=== PATIENT | male | born 1945 | race Caucasian/White ===

== ENCOUNTER 2022-03-23 10:45 | Inpatient (IN) ==
[2022-03-23] MEDS: QUEtiapine Fumarate 25 MG TABLET PO SCH (20:38)
[2022-03-23] MEDS ORDERED: Lactulose Oral Soln 20 GM/30 ML UDC PO SCH (21:00)
[2022-03-24 08:14] LABS: Basophils % 0.5 %; Eosinophils # 0.2 K/mcL (0.0-0.6); Eosinophils % 3.5 %; Hematocrit 32.8 % (37.5-50.1); Immature Granulocytes % 0.2 % (0-4); Lymphocytes # 0.9 K/mcL (0.6-4.6); Lymphocytes % 21.2 %; Mean Corpuscular HGB Conc 33.5 g/dL (31.6-35.5); Mean Corpuscular Hemoglobin 30.3 pg (28.0-33.3); Mean Corpuscular Volume 90.4 fL (83.0-100.0); Mean Platelet Volume 11.4 fL (9.4-12.4); Monocytes # 0.5 K/mcL (0.0-1.3); Monocytes % 12.5 %; Neutrophils # 2.7 K/mcL (1.6-8.9); Platelet Count 134 K/mcL (140-400); Red Blood Count 3.63 M/mcL (4.19-5.50); Red Cell Distribution Width 16.1 % (11.5-14.5); Segmented Neutrophils % 62.1 %; White Blood Count 4.3 K/mcL (4.3-11.1)
[2022-03-24 08:30] LABS: BUN/Creatinine Ratio 22 (6-26); Blood Urea Nitrogen 30 mg/dL (8-23); Calcium 8.6 mg/dL (8.6-10.3); Carbon Dioxide 26 mEq/L (23-29); Chloride 107 mEq/L (98-107); Glucose 84 mg/dL (70-105); Osmolality,Calculated 295 (280-300); Potassium 3.5 mEq/L (3.5-5.1); Sodium 140 mEq/L (136-145); eGFR For African Americans > 60 (> 60); eGFR For Non-African Americans 50 (> 60)
[2022-03-24 08:32] LABS: Alanine Aminotransferase 68 Units/L (7-52); Albumin 2.8 g/dL (3.5-5.7); Alkaline Phosphatase 135 Units/L (34-104); Aspartate Amino Transferase 147 Units/L (13-39); BUN/Creatinine Ratio 21 (6-26); Bilirubin,Total 0.7 mg/dL (0.3-1.0); Blood Urea Nitrogen 29 mg/dL (8-23); Calcium 8.6 mg/dL (8.6-10.3); Carbon Dioxide 26 mEq/L (23-29); Chloride 107 mEq/L (98-107); Globulin 2.8 g/dL (2.4-3.5); Glucose 84 mg/dL (70-105); Osmolality,Calculated 295 (280-300); Potassium 3.5 mEq/L (3.5-5.1); Sodium 140 mEq/L (136-145); Total Protein 5.6 g/dL (6.4-8.9); eGFR For African Americans > 60 (> 60); eGFR For Non-African Americans 51 (> 60)
[2022-03-24] MEDS ORDERED: Aspirin Enteric Coated 81 MG Tablet PO SCH (09:00)
[2022-03-24] MEDS: Aspirin Enteric Coated 81 MG Tablet PO SCH (09:14)
[2022-03-24] MEDS: Lactulose Oral Soln 20 GM/30 ML UDC PO SCH ×3 (09:15→21:25)
[2022-03-24] MEDS: Finasteride 5 MG TABLET PO SCH (09:15)
[2022-03-24] MEDS: Cholecalciferol (D-3) 1,000 UNIT (25MCG) TABLET PO SCH (09:16)
[2022-03-24] MEDS: amLODIPine 5 MG TABLET PO SCH (09:16)
[2022-03-24] MEDS: QUEtiapine Fumarate 25 MG TABLET PO SCH (21:25)
[2022-03-25 07:37] LABS: Basophils % 0.5 %; Eosinophils # 0.2 K/mcL (0.0-0.6); Eosinophils % 3.9 %; Hematocrit 34.8 % (37.5-50.1); Hemoglobin 11.7 g/dL (12.9-16.9); Immature Granulocytes % 0.3 % (0-4); Lymphocytes % 26.3 %; Mean Corpuscular HGB Conc 33.6 g/dL (31.6-35.5); Mean Corpuscular Hemoglobin 30.4 pg (28.0-33.3); Mean Corpuscular Volume 90.4 fL (83.0-100.0); Mean Platelet Volume 11.2 fL (9.4-12.4); Monocytes % 11.7 %; Neutrophils # 2.2 K/mcL (1.6-8.9); Platelet Count 130 K/mcL (140-400); Red Blood Count 3.85 M/mcL (4.19-5.50); Red Cell Distribution Width 16.3 % (11.5-14.5); Segmented Neutrophils % 57.3 %; White Blood Count 3.8 K/mcL (4.3-11.1)
[2022-03-25 07:50] LABS: INR 1.6; Prothrombin Time 17.9 Seconds (9.4-12.1)
[2022-03-25 07:51] LABS: Monocytes # 0.4 K/mcL (0.0-1.3)
[2022-03-25 08:02] LABS: Alanine Aminotransferase 75 Units/L (7-52); Albumin 2.8 g/dL (3.5-5.7); Alkaline Phosphatase 136 Units/L (34-104); Aspartate Amino Transferase 155 Units/L (13-39); BUN/Creatinine Ratio 21 (6-26); Bilirubin,Total 0.8 mg/dL (0.3-1.0); Blood Urea Nitrogen 26 mg/dL (8-23); Calcium 8.3 mg/dL (8.6-10.3); Carbon Dioxide 27 mEq/L (23-29); Chloride 107 mEq/L (98-107); Globulin 2.9 g/dL (2.4-3.5); Glucose 77 mg/dL (70-105); Osmolality,Calculated 294 (280-300); Potassium 3.6 mEq/L (3.5-5.1); Sodium 140 mEq/L (136-145); Total Protein 5.7 g/dL (6.4-8.9); eGFR For African Americans > 60 (> 60); eGFR For Non-African Americans 58 (> 60)
[2022-03-25 08:03] LABS: BUN/Creatinine Ratio 21 (6-26); Blood Urea Nitrogen 26 mg/dL (8-23); Calcium 8.4 mg/dL (8.6-10.3); Carbon Dioxide 27 mEq/L (23-29); Chloride 107 mEq/L (98-107); Glucose 77 mg/dL (70-105); Osmolality,Calculated 294 (280-300); Potassium 3.7 mEq/L (3.5-5.1); Sodium 140 mEq/L (136-145); eGFR For African Americans > 60 (> 60); eGFR For Non-African Americans 57 (> 60)
[2022-03-25] MEDS: Lactulose Oral Soln 20 GM/30 ML UDC PO SCH ×3 (08:40→20:50)
[2022-03-25] MEDS: Cholecalciferol (D-3) 1,000 UNIT (25MCG) TABLET PO SCH (08:41)
[2022-03-25] MEDS: Aspirin Enteric Coated 81 MG Tablet PO SCH (08:41)
[2022-03-25] MEDS: Finasteride 5 MG TABLET PO SCH (08:41)
[2022-03-25] MEDS: amLODIPine 5 MG TABLET PO SCH (08:41)
[2022-03-25] MEDS: QUEtiapine Fumarate 25 MG TABLET PO SCH (20:50)
[2022-03-26 08:08] LABS: Basophils % 0.5 %; Eosinophils # 0.1 K/mcL (0.0-0.6); Eosinophils % 3.4 %; Hematocrit 36.1 % (37.5-50.1); Hemoglobin 12.2 g/dL (12.9-16.9); Immature Granulocytes % 0.3 % (0-4); Lymphocytes # 0.9 K/mcL (0.6-4.6); Lymphocytes % 22.4 %; Mean Corpuscular HGB Conc 33.8 g/dL (31.6-35.5); Mean Corpuscular Hemoglobin 30.2 pg (28.0-33.3); Mean Corpuscular Volume 89.4 fL (83.0-100.0); Mean Platelet Volume 11.2 fL (9.4-12.4); Monocytes # 0.4 K/mcL (0.0-1.3); Monocytes % 10.7 %; Neutrophils # 2.4 K/mcL (1.6-8.9); Platelet Count 135 K/mcL (140-400); Red Blood Count 4.04 M/mcL (4.19-5.50); Red Cell Distribution Width 15.9 % (11.5-14.5); Segmented Neutrophils % 62.7 %; White Blood Count 3.8 K/mcL (4.3-11.1)
[2022-03-26 08:36] LABS: Alanine Aminotransferase 81 Units/L (7-52); Albumin 2.9 g/dL (3.5-5.7); Alkaline Phosphatase 144 Units/L (34-104); Aspartate Amino Transferase 163 Units/L (13-39); BUN/Creatinine Ratio 22 (6-26); Blood Urea Nitrogen 25 mg/dL (8-23); Calcium 8.3 mg/dL (8.6-10.3); Carbon Dioxide 27 mEq/L (23-29); Chloride 105 mEq/L (98-107); Glucose 81 mg/dL (70-105); Osmolality,Calculated 289 (280-300); Potassium 3.5 mEq/L (3.5-5.1); Sodium 138 mEq/L (136-145); Total Protein 5.9 g/dL (6.4-8.9); eGFR For African Americans > 60 (> 60); eGFR For Non-African Americans > 60 (> 60)
[2022-03-26] MEDS: amLODIPine 5 MG TABLET PO SCH (10:04)
[2022-03-26] MEDS: Lactulose Oral Soln 20 GM/30 ML UDC PO SCH ×3 (10:04→23:59)
[2022-03-26] MEDS: Aspirin Enteric Coated 81 MG Tablet PO SCH (10:05)
[2022-03-26] MEDS: Finasteride 5 MG TABLET PO SCH (10:06)
[2022-03-26] MEDS: Cholecalciferol (D-3) 1,000 UNIT (25MCG) TABLET PO SCH (10:06)
[2022-03-26] MEDS: Furosemide 20 MG TABLET PO SCH (10:19)
[2022-03-26] MEDS: QUEtiapine Fumarate 25 MG TABLET PO SCH (23:59)
[2022-03-27] MEDS: Lactulose Oral Soln 20 GM/30 ML UDC PO SCH ×3 (09:11→22:29)
[2022-03-27] MEDS: Cholecalciferol (D-3) 1,000 UNIT (25MCG) TABLET PO SCH (09:12)
[2022-03-27] MEDS: amLODIPine 5 MG TABLET PO SCH (09:12)
[2022-03-27] MEDS: Finasteride 5 MG TABLET PO SCH (09:12)
[2022-03-27] MEDS: Furosemide 20 MG TABLET PO SCH (09:14)
[2022-03-27] MEDS: Aspirin Enteric Coated 81 MG Tablet PO SCH (09:17)
[2022-03-27] MEDS: QUEtiapine Fumarate 25 MG TABLET PO SCH (22:29)
[2022-03-28] MEDS: amLODIPine 5 MG TABLET PO SCH (09:26)
[2022-03-28] MEDS: Lactulose Oral Soln 20 GM/30 ML UDC PO SCH ×3 (09:26→21:59)
[2022-03-28] MEDS: Aspirin Enteric Coated 81 MG Tablet PO SCH (09:26)
[2022-03-28] MEDS: Finasteride 5 MG TABLET PO SCH (09:27)
[2022-03-28] MEDS: Furosemide 20 MG TABLET PO SCH (09:27)
[2022-03-28] MEDS: Cholecalciferol (D-3) 1,000 UNIT (25MCG) TABLET PO SCH (09:28)
[2022-03-28] MEDS: QUEtiapine Fumarate 25 MG TABLET PO SCH (21:59)
[2022-03-29] MEDS: Cholecalciferol (D-3) 1,000 UNIT (25MCG) TABLET PO SCH (08:41)
[2022-03-29] MEDS: amLODIPine 5 MG TABLET PO SCH (08:41)
[2022-03-29] MEDS: Finasteride 5 MG TABLET PO SCH (08:41)
[2022-03-29] MEDS: Furosemide 20 MG TABLET PO SCH (08:41)
[2022-03-29] MEDS: Lactulose Oral Soln 20 GM/30 ML UDC PO SCH ×3 (08:42→20:39)
[2022-03-29] MEDS: Aspirin Enteric Coated 81 MG Tablet PO SCH (08:42)
[2022-03-29] MEDS: QUEtiapine Fumarate 25 MG TABLET PO SCH (20:40)
[2022-03-30] MEDS: Lactulose Oral Soln 20 GM/30 ML UDC PO SCH ×3 (09:55→21:42)
[2022-03-30] MEDS: amLODIPine 5 MG TABLET PO SCH (09:56)
[2022-03-30] MEDS: Cholecalciferol (D-3) 1,000 UNIT (25MCG) TABLET PO SCH (09:56)
[2022-03-30] MEDS: Finasteride 5 MG TABLET PO SCH (09:56)
[2022-03-30] MEDS: Aspirin Enteric Coated 81 MG Tablet PO SCH (09:56)
[2022-03-30] MEDS: Furosemide 20 MG TABLET PO SCH (09:56)
[2022-03-30 10:06] LABS: Hematocrit 36.8 % (37.5-50.1); Hemoglobin 12.5 g/dL (12.9-16.9); Mean Corpuscular Hemoglobin 30.3 pg (28.0-33.3); Mean Corpuscular Volume 89.1 fL (83.0-100.0); Mean Platelet Volume 10.6 fL (9.4-12.4); Platelet Count 126 K/mcL (140-400); Red Blood Count 4.13 M/mcL (4.19-5.50); Red Cell Distribution Width 15.7 % (11.5-14.5); White Blood Count 5.7 K/mcL (4.3-11.1)
[2022-03-30 10:26] LABS: Albumin/Globulin Ratio 0.9 (1.1-2.2); Bilirubin,Total 1.3 mg/dL (0.3-1.0); Calcium 8.6 mg/dL (8.6-10.3); Globulin 3.2 g/dL (2.4-3.5); Potassium 3.4 mEq/L (3.5-5.1); Total Protein 6.2 g/dL (6.4-8.9)
[2022-03-30] MEDS: QUEtiapine Fumarate 25 MG TABLET PO SCH (21:42)
[2022-03-31] MEDS: amLODIPine 5 MG TABLET PO SCH (09:29)
[2022-03-31] MEDS: Furosemide 20 MG TABLET PO SCH (09:29)
[2022-03-31] MEDS: Aspirin Enteric Coated 81 MG Tablet PO SCH (09:29)
[2022-03-31] MEDS: Finasteride 5 MG TABLET PO SCH (09:29)
[2022-03-31] MEDS: Lactulose Oral Soln 20 GM/30 ML UDC PO SCH ×3 (09:30→21:16)
[2022-03-31] MEDS: Cholecalciferol (D-3) 1,000 UNIT (25MCG) TABLET PO SCH (09:31)
[2022-03-31] MEDS: QUEtiapine Fumarate 25 MG TABLET PO SCH (21:16)
[2022-04-01] MEDS: Aspirin Enteric Coated 81 MG Tablet PO SCH (09:32)
[2022-04-01] MEDS: amLODIPine 5 MG TABLET PO SCH (09:32)
[2022-04-01] MEDS: Finasteride 5 MG TABLET PO SCH (09:32)
[2022-04-01] MEDS: Furosemide 20 MG TABLET PO SCH (09:32)
[2022-04-01] MEDS: Cholecalciferol (D-3) 1,000 UNIT (25MCG) TABLET PO SCH (09:33)
[2022-04-01] MEDS: Lactulose Oral Soln 20 GM/30 ML UDC PO SCH ×3 (09:33→20:25)
[2022-04-01] MEDS: QUEtiapine Fumarate 25 MG TABLET PO SCH (20:25)
[2022-04-01] MEDS: Nystatin POWDER 30 GM BOTTLE TP SCH (20:29)
[2022-04-02] MEDS: Lactulose Oral Soln 20 GM/30 ML UDC PO SCH ×3 (09:48→19:47)
[2022-04-02] MEDS: amLODIPine 5 MG TABLET PO SCH (09:49)
[2022-04-02] MEDS: Finasteride 5 MG TABLET PO SCH (09:49)
[2022-04-02] MEDS: Aspirin Enteric Coated 81 MG Tablet PO SCH (09:49)
[2022-04-02] MEDS: Furosemide 20 MG TABLET PO SCH (09:49)
[2022-04-02] MEDS: Cholecalciferol (D-3) 1,000 UNIT (25MCG) TABLET PO SCH (09:50)
[2022-04-02] MEDS: Nystatin POWDER 30 GM BOTTLE TP SCH ×2 (09:50→19:47)
[2022-04-02] MEDS: QUEtiapine Fumarate 25 MG TABLET PO SCH (19:47)
[2022-04-03 06:11] LABS: Basophils % 0.6 %; Eosinophils # 0.2 K/mcL (0.0-0.6); Eosinophils % 3.7 %; Hemoglobin 11.8 g/dL (12.9-16.9); Immature Granulocytes % 0.2 % (0-4); Lymphocytes % 20.2 %; Mean Corpuscular HGB Conc 33.7 g/dL (31.6-35.5); Mean Corpuscular Hemoglobin 30.2 pg (28.0-33.3); Mean Corpuscular Volume 89.5 fL (83.0-100.0); Mean Platelet Volume 11.3 fL (9.4-12.4); Monocytes # 0.5 K/mcL (0.0-1.3); Monocytes % 10.2 %; Neutrophils # 3.2 K/mcL (1.6-8.9); Platelet Count 142 K/mcL (140-400); Red Blood Count 3.91 M/mcL (4.19-5.50); Red Cell Distribution Width 15.9 % (11.5-14.5); Segmented Neutrophils % 65.1 %; White Blood Count 4.9 K/mcL (4.3-11.1)
[2022-04-03 06:33] LABS: Albumin 2.9 g/dL (3.5-5.7); Albumin/Globulin Ratio 0.8 (1.1-2.2); Bilirubin,Total 1.2 mg/dL (0.3-1.0); Calcium 8.7 mg/dL (8.6-10.3); Globulin 3.5 g/dL (2.4-3.5); Potassium 3.9 mEq/L (3.5-5.1); Total Protein 6.4 g/dL (6.4-8.9)
[2022-04-03] MEDS: Lactulose Oral Soln 20 GM/30 ML UDC PO SCH ×3 (09:57→20:16)
[2022-04-03] MEDS: amLODIPine 5 MG TABLET PO SCH (09:57)
[2022-04-03] MEDS: Aspirin Enteric Coated 81 MG Tablet PO SCH (09:58)
[2022-04-03] MEDS: Cholecalciferol (D-3) 1,000 UNIT (25MCG) TABLET PO SCH (09:58)
[2022-04-03] MEDS: Finasteride 5 MG TABLET PO SCH (09:58)
[2022-04-03] MEDS: Furosemide 20 MG TABLET PO SCH (09:58)
[2022-04-03] MEDS: Nystatin POWDER 30 GM BOTTLE TP SCH ×2 (09:59→20:16)
[2022-04-03] MEDS: QUEtiapine Fumarate 25 MG TABLET PO SCH (20:16)
[2022-04-04 07:35] LABS: Basophils % 0.4 %; Eosinophils # 0.2 K/mcL (0.0-0.6); Eosinophils % 3.7 %; Hematocrit 34.8 % (37.5-50.1); Hemoglobin 11.7 g/dL (12.9-16.9); Immature Granulocytes % 0.2 % (0-4); Lymphocytes # 1.1 K/mcL (0.6-4.6); Lymphocytes % 21.3 %; Mean Corpuscular HGB Conc 33.6 g/dL (31.6-35.5); Mean Corpuscular Volume 89.2 fL (83.0-100.0); Mean Platelet Volume 11.1 fL (9.4-12.4); Monocytes # 0.5 K/mcL (0.0-1.3); Monocytes % 9.7 %; Neutrophils # 3.2 K/mcL (1.6-8.9); Platelet Count 136 K/mcL (140-400); Red Cell Distribution Width 15.6 % (11.5-14.5); Segmented Neutrophils % 64.7 %; White Blood Count 4.9 K/mcL (4.3-11.1)
[2022-04-04] MEDS: amLODIPine 5 MG TABLET PO SCH (07:42)
[2022-04-04] MEDS: Aspirin Enteric Coated 81 MG Tablet PO SCH (07:42)
[2022-04-04] MEDS: Finasteride 5 MG TABLET PO SCH (07:43)
[2022-04-04] MEDS: Nystatin POWDER 30 GM BOTTLE TP SCH ×2 (07:43→21:18)
[2022-04-04] MEDS: Cholecalciferol (D-3) 1,000 UNIT (25MCG) TABLET PO SCH (07:43)
[2022-04-04] MEDS: Lactulose Oral Soln 20 GM/30 ML UDC PO SCH ×2 (07:43→21:17)
[2022-04-04] MEDS: Furosemide 20 MG TABLET PO SCH (08:03)
[2022-04-04 08:08] LABS: Albumin 2.8 g/dL (3.5-5.7); Albumin/Globulin Ratio 0.8 (1.1-2.2); Bilirubin,Total 1.2 mg/dL (0.3-1.0); Calcium 8.7 mg/dL (8.6-10.3); Globulin 3.4 g/dL (2.4-3.5); Potassium 3.9 mEq/L (3.5-5.1); Total Protein 6.2 g/dL (6.4-8.9)
[2022-04-04] MEDS: QUEtiapine Fumarate 25 MG TABLET PO SCH (21:17)
[2022-04-05 07:04] VITALS: TEMP 97.9
[2022-04-05] MEDS: Aspirin Enteric Coated 81 MG Tablet PO SCH (08:46)
[2022-04-05] MEDS: amLODIPine 5 MG TABLET PO SCH (08:49)
[2022-04-05] MEDS: Cholecalciferol (D-3) 1,000 UNIT (25MCG) TABLET PO SCH (08:50)
[2022-04-05] MEDS: Finasteride 5 MG TABLET PO SCH (08:51)
[2022-04-05] MEDS: Furosemide 20 MG TABLET PO SCH (08:51)
[2022-04-05] MEDS: Lactulose Oral Soln 20 GM/30 ML UDC PO SCH (08:52)
[2022-04-05] MEDS: Nystatin POWDER 30 GM BOTTLE TP SCH (08:52)
[2022-04-05 15:02] VITALS: BP 126/66; PULSE 56; RESP 20; O2SAT 97
== END 2022-04-05 16:43 | DRG 432 ==
LOC: INPPIK 14:52
PROVIDERS: ADMIT Internal Medicine; ATTEND Internal Medicine